=== PATIENT | female | born 1995 | race Caucasian/White ===

== ENCOUNTER 2018-02-21 06:58 | Emergency (ER) | payer OTHER ==
--- NOTE | 2018-02-21 07:45 | EDPHY ---
H & P Stated Complaint: here for delayed closure r knee Time Seen by Provider: 02/21/18 07:27 HPI/ROS: CHIEF COMPLAINT: Here for delayed closure of right knee laceration HISTORY OF PRESENT ILLNESS: 22-year-old female presents for delayed closure of right knee laceration. 3 days ago, she was backpacking, fell onto her right knee and sustained a laceration to the knee. She was seen in this emergency department on 02/18. The wound was cleansed thoroughly and she was placed on Keflex. Minimal pain and no drainage. ROS: No numbness, weakness, excessive bleeding, syncopal episode, other injury. - Personal History LMP (Females 10-55): 22-28 Days Ago Current Tetanus Diphtheria and Acellular Pertussis (TDAP): Yes - Medical/Surgical History Hx Asthma: No Hx Chronic Respiratory Disease: No Hx Diabetes: No Hx Cardiac Disease: No Hx Renal Disease: No Hx Cirrhosis: No Hx Alcoholism: No Hx HIV/AIDS: No Hx Splenectomy or Spleen Trauma: No Other PMH: denies - Social History Smoking Status: Never smoked - Physical Exam Exam: Alert and oriented, pleasant Extremities: Right knee-superficial flap laceration on the right knee, 4 cm. The wound is clean, no surrounding erythema. Neuro: Motor and sensory intact Vascular: Capillary refill brisk distally. Constitutional: Initial Vital Signs Temperature (C) 36.5 C 02/21/18 07:00 Heart Rate 57 L 02/21/18 07:00 Respiratory Rate 17 02/21/18 07:00 Blood Pressure 107/75 02/21/18 07:00 O2 Sat (%) 98 02/21/18 07:00 O2 Delivery Mode Room Air Allergies/Adverse Reactions: No Known Allergies Allergy (Verified 02/21/18 06:59) Home Medications: Medication Instructions Recorded Cephalexin [Keflex] 500 mg PO TID 5 Days cap 02/18/18 Medical Decision Making Procedures: Procedure: Laceration repair. The 4 cm laceration on the right knee was anesthetized using lidocaine. The wound was irrigated, draped and explored to its base with a gloved finger. There were no deep structures involved. No foreign body palpable or visible. The wound was repaired with 4-0 Nylon. The wound repair was simple. Departure - Departure Disposition: Home, Routine, Self-Care Clinical Impression: Laceration of knee Qualifiers: Encounter type: subsequent encounter Laterality: right Qualified Code(s): S81.011D - Laceration without foreign body, right knee, subsequent encounter Condition: Good Instructions: Care For Your Stitches (ED), Laceration (ED) Additional Instructions: Return for suture removal in 14 days. Continue taking Keflex. Referrals: Fawn Randle MD [[facility] [place]] - Follow Up Only If Needed
[2018-02-21 08:24] VITALS: BP 110/69
== END 2018-02-21 08:23 | disposition home or self-care (01) ==
LOC: MERGE 06:58
PROC: 0HQKXZZ Repair Right Lower Leg Skin, External Approach (ICD-10-PCS; principal; 2018-02-21)
DX: S81.011D Laceration without foreign body, right knee, subsequent encounter (principal); W18.39XD Other fall on same level, subsequent encounter